=== PATIENT | male | born 1975 | race Two or more races ===

== ENCOUNTER → 2018-05-22 | Emergency (ER) | payer OTHER ==
[~2018-05-22] VITALS: Ht 175.3 cm; Wt 73.9 kg
== END | disposition designated cancer center or children's hospital (05) ==
LOC: ER 08:19
DX: S80.02XA Contusion of left knee, initial encounter (principal); W22.8XXA Striking against or struck by other objects, initial encounter; Y93.89 Activity, other specified; Y92.69 Other specified industrial and construction area as the place of occurrence of the external cause; Y99.8 Other external cause status

== ENCOUNTER 2023-05-28 09:59 | Emergency (ER) | payer OTHER ==
[~2023-05-28] VITALS: Ht 175.3 cm; Wt 72.6 kg
== END 2023-05-28 17:22 | disposition home or self-care (01) ==
LOC: ER 09:59
DX: M25.531 Pain in right wrist (principal)